=== PATIENT | male | born 1990 | race Two or more races ===

== ENCOUNTER 2017-11-30 16:06 | Emergency (ER) | payer BC, OTHER ==
[~2017-11-30] VITALS: Ht 170.2 cm; Wt 93.2 kg
[2017-11-30 17:34] LABS: BASOPHILS # (AUTO) 0.03 x10^3/uL (0-0.1); BASOPHILS % (AUTO) 1 % (0-1); EOSINOPHILS # (AUTO) 0.04 x10^3/uL (0-0.4); EOSINOPHILS % (AUTO) 1 % (1-7); LYMPHOCYTES # (AUTO) 1.82 x10^3/uL (1-3.4); LYMPHOCYTES % (AUTO) 42 % (22-44); MD NO; MEAN CORPUSCULAR HEMOGLOBIN 28.9 pg (27.5-34.5); MEAN CORPUSCULAR VOLUME 82.8 fL (81-97); MEAN PLATELET VOLUME 8.1 fL (7.4-10.4); MONOCYTES # (AUTO) 0.54 x10^3/uL (0.2-0.8); MONOCYTES % (AUTO) 12 % (2-9); NEUTROPHILS # (AUTO) 1.94 x10^3/uL (1.8-6.8); NEUTROPHILS % (AUTO) 44 % (42-75); PLATELET COUNT 240 x10^3/uL (130-400); RED BLOOD COUNT 5.54 x10^6/uL (4.38-5.82); RED CELL DISTRIBUTION WIDTH 12.7 % (9.4-14.8)
[2017-11-30 17:46] LABS: ALBUMIN 3.8 g/dL (3.4-5.0); ANION GAP 8 mmol/L (5-15); CALCIUM 8.7 mg/dL (8.5-10.1); CHLORIDE 107 mmol/L (98-107); CREATININE 1.07 mg/dL (0.7-1.3)
[2017-11-30 18:24] VITALS: BP 126/71
== END 2017-11-30 19:08 | disposition home or self-care (01) ==
LOC: ED 19:00
DX: J02.8 Acute pharyngitis due to other specified organisms (principal); B34.9 Viral infection, unspecified
CPT/HCPCS: 36415; 80048; 82040; 85025; 86308; 87081; 87147; 87880; 93005; 99285

== ENCOUNTER 2017-12-01 15:30 | Emergency (ER) | payer BC ==
[~2017-12-01] VITALS: Ht 170.2 cm; Wt 91.4 kg
[2017-12-01 15:33] VITALS: BP 123/79
== END 2017-12-01 16:29 | disposition home or self-care (01) ==
LOC: ED 16:18
DX: B08.4 Enteroviral vesicular stomatitis with exanthem (principal)
CPT/HCPCS: 99281

== ENCOUNTER 2018-07-20 03:45 | Emergency (ER) | payer BC, OTHER ==
[~2018-07-20] VITALS: Ht 170.2 cm; Wt 91.9 kg
[2018-07-20] MEDS ORDERED: ACETAMINOPHEN 325 MG TABLET ONE (04:08)
[2018-07-20] MEDS ORDERED: ZIPRASIDONE 20MG CAPSULE PO ONE (04:30)
[2018-07-20] MEDS ORDERED: ACETAMINOPHEN 325 MG TABLET PO ONE (04:30)
[2018-07-20 04:38] LABS: BASOPHILS # (AUTO) 0.08 x10^3/uL (0-0.1); BASOPHILS % (AUTO) 1 % (0-1); EOSINOPHILS # (AUTO) 0.02 x10^3/uL (0-0.4); EOSINOPHILS % (AUTO) 0 % (1-7); LYMPHOCYTES # (AUTO) 1.32 x10^3/uL (1-3.4); LYMPHOCYTES % (AUTO) 21 % (22-44); MD NO; MEAN CORPUSCULAR HEMOGLOBIN 29.2 pg (27.5-34.5); MEAN CORPUSCULAR HGB CONC 34.9 g/dL (33.2-36.2); MEAN CORPUSCULAR VOLUME 83.6 fL (81-97); MEAN PLATELET VOLUME 8.1 fL (7.4-10.4); MONOCYTES # (AUTO) 0.27 x10^3/uL (0.2-0.8); MONOCYTES % (AUTO) 4 % (2-9); NEUTROPHILS % (AUTO) 73 % (42-75); PLATELET COUNT 259 x10^3/uL (130-400); RED BLOOD COUNT 5.38 x10^6/uL (4.38-5.82); RED CELL DISTRIBUTION WIDTH 12.7 % (9.4-14.8)
[2018-07-20 04:49] LABS: ALANINE AMINOTRANSFERASE 34 U/L (12-78); ANION GAP 9 mmol/L (5-15); CALCIUM 8.4 mg/dL (8.5-10.1); CHLORIDE 107 mmol/L (98-107); CREATININE 1.05 mg/dL (0.7-1.3)
[2018-07-20 04:53] LABS: ALKALINE PHOSPHATASE 73 U/L (45-117); BILIRUBIN,TOTAL 0.4 mg/dL (0.2-1.0); TOTAL PROTEIN 7.4 g/dL (6.4-8.2); TROPONIN I 0.024 ng/mL (0.000-0.045)
[2018-07-20 05:10] VITALS: BP 113/57
== END 2018-07-20 05:12 | disposition home or self-care (01) ==
LOC: ED 04:11
DX: R07.9 Chest pain, unspecified (principal); R51 Headache
CPT/HCPCS: 36415; 71045; 80053; 83690; 84484; 85025; 93005; 99284